=== PATIENT | female | born 1995 | race Two or more races ===

== ENCOUNTER 2019-07-09 16:04 | Emergency (ER) | payer SELFPAY ==
[2019-07-09 16:09] VITALS: BP 126/55
--- NOTE | 2019-07-09 16:22 | ER Document Report ---
ED Medical Screen (RME) - General Chief Complaint: Cold Symptoms Stated Complaint: SORE THROAT Time Seen by Provider: 07/09/19 16:12 Mode of Arrival: Ambulatory Information source: Patient Notes: 24-year-old female who is and half weeks presents emergency department with complaints of sore throat cough and fells like she is having a hard time getting a deep breath for the past few days.. Also c/o abdominal cramping. Vonda f/v/d. 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 Patient has hoarse voice. Respiratory rate even unlabored. Denies pain with void. Denies vaginal discharge denies head bleeding. I have greeted and performed a rapid initial assessment of this patient. A comprehensive ED assessment and evaluation of the patient, analysis of test results and completion of the medical decision making process will be conducted by additional ED providers. Dictation of this chart was performed using voice recognition software; therefore, there may be some unintended grammatical errors. TRAVEL OUTSIDE OF THE [place] IN LAST 30 DAYS: No - Related Data Allergies/Adverse Reactions: No Known Allergies Allergy (Verified 07/09/19 16:09) Physical Exam - Vital signs Vitals: Temp Pulse Resp BP Pulse Ox 97.5 F 59 L 20 126/55 H 99 07/09/19 16:08 07/09/19 16:08 07/09/19 16:08 07/09/19 16:08 07/09/19 16:08 Course - Vital Signs Vital signs: Temp Pulse Resp BP Pulse Ox 97.5 F 59 L 20 126/55 H 99 07/09/19 16:08 07/09/19 16:08 07/09/19 16:08 07/09/19 16:08 07/09/19 16:08
--- NOTE | 2019-07-09 16:47 | RADIOLOGY REPORT (SQ) ---
EXAM DESCRIPTION: CHEST 2 VIEWS COMPLETED DATE/TIME: 07/09/2019 4:37 pm REASON FOR STUDY: cough COMPARISON: None. EXAM PARAMETERS: NUMBER OF VIEWS: two views TECHNIQUE: Digital Frontal and Lateral radiographic views of the chest acquired. RADIATION DOSE: NA LIMITATIONS: none FINDINGS: LUNGS AND PLEURA: No opacities, masses or pneumothorax. No pleural effusion. MEDIASTINUM AND HILAR STRUCTURES: No masses or contour abnormalities. HEART AND VASCULAR STRUCTURES: Mild cardiomegaly. No pulmonary edema. BONES: No acute findings. HARDWARE: None in the chest. OTHER: No other significant finding. IMPRESSION: Mild cardiomegaly without pulmonary edema. TECHNICAL DOCUMENTATION: JOB ID: [id number] [employer]- All Rights Reserved Reading location - IP/workstation name: [email or web address]
[2019-07-09] MEDS ORDERED: ACETAMINOPHEN 325 MG TABLET PO ONE (16:49)
[2019-07-09 16:53] LABS: APPEARANCE,URINE CLEAR; BILIRUBIN,URINE NEGATIVE (NEGATIVE); COLOR,URINE COLORLESS; GLUCOSE, URINE NEGATIVE (NEGATIVE); KETONES,URINE NEGATIVE (NEGATIVE); LEUKOCYTE ESTERASE,URINE NEGATIVE (NEGATIVE); NITRITE,URINE NEGATIVE (NEGATIVE); PROTEIN,URINE NEGATIVE (NEGATIVE); URINE SPECIFIC GRAVITY 1.003; UROBILINOGEN,URINE NEGATIVE mg/dL (<2.0)
--- NOTE | 2019-07-09 16:53 | ER Document Report ---
HPI - HPI Patient complains to provider of: cough, sore throat Time Seen by Provider: 07/09/19 16:12 Onset: Last week Onset/Duration: Persistent Quality of pain: Achy Pain Level: 1 Context: Patient presents at 19 weeks G1, P0. Patient complains of sore throat cough for the past week. Patient states that she lost her voice yesterday. Patient denies any fever, nausea, vomiting, or diarrhea. Patient denies any vaginal bleeding or discharge. Patient does report some pelvic cramping that started yesterday. Patient denies any urinary symptoms. Patient does report positive movement. Associated Symptoms: Nonproductive cough, Sore throat, Other - Voice hoarseness, pelvic cramping. denies: Fever Exacerbated by: Denies Relieved by: Denies Similar symptoms previously: No Recently seen / treated by doctor: No - ROS ROS below otherwise negative: Yes Systems Reviewed and Negative: Yes All other systems reviewed and negative - CONSTITUTIONAL Constitutional: DENIES: Fever, Chills - EENT EENT: REPORTS: Sore Throat, Congestion - NEURO Neurology: DENIES: Headache - CARDIOVASCULAR Cardiovascular: DENIES: Chest pain - RESPIRATORY Respiratory: REPORTS: Coughing. DENIES: Trouble Breathing - GASTROINTESTINAL Gastrointestinal: REPORTS: Abdominal Pain. DENIES: Nausea, Patient vomiting - URINARY Urinary: DENIES: Dysuria, Urgency, Frequency - MUSCULOSKELETAL Musculoskeletal: DENIES: Back Pain - DERM Skin Color: Normal Skin Problems: None Past Medical History - General Information source: Patient - Social History Smoking Status: Never Smoker Frequency of alcohol use: None Drug Abuse: None Occupation: Personal care Family History: Reviewed & Not Pertinent Patient has suicidal ideation: No Patient has homicidal ideation: No Psychiatric Medical History: Reports: Hx Anxiety, Hx Depression Past Surgical History: Reports: Other - Tympanostomy Vertical Provider Document - CONSTITUTIONAL Agree With Documented VS: Yes Exam Limitations: No Limitations General Appearance: WD/WN, No Apparent Distress - INFECTION CONTROL TRAVEL OUTSIDE OF THE [place] IN LAST 30 DAYS: No - HEENT HEENT: Atraumatic, Normocephalic, Pharyngeal Tenderness. negative: Pharyngeal Exudate, Pharyngeal Erythema, Tympanic Membrane Red, Tympanic Membrane Bulging Notes: voice hoarseness - NECK Neck: Normal Inspection, Supple. negative: Lymphadenopathy-Left, Lymphadenopathy-Right - RESPIRATORY Respiratory: No Respiratory Distress, Chest Non-Tender, Other - dry cough - CARDIOVASCULAR Cardiovascular: Regular Rate, Regular Rhythm, No Murmur - GI/ABDOMEN Gastrointestinal: Abdomen Soft, Abdomen Tender - lower pelvic - BACK Back: Normal Inspection. negative: CVA Tenderness-Right, CVA Tenderness-Left - MUSCULOSKELETAL/EXTREMETIES Musculoskeletal/Extremeties: MAGNOLIA EDGE - NEURO Level of Consciousness: Awake, Alert, Appropriate Motor/Sensory: No Motor Deficit - DERM Integumentary: Warm, Dry, No Rash Course - Re-evaluation Re-evalutation: 07/09/19 17:33 Patient with heart tones of 148. Negative rapid strep test. No acute findings on chest x-ray aside from incidental cardiomegaly noted. Patient advised of x-ray findings. Patient denies any known history of cardiac enlargement. Patient is refusing to have ultrasound performed of the abdomen as she does not currently have insurance coverage. Patient states she had ultrasound several weeks ago which was normal. Patient denies any vaginal bleeding or discharge. Pt does have heart tones and notes movement. Patient requested provider speak with her mother as her mother is an CLINICAL PHARMACOLOGIST nurse. Discussed with patient and mother patient's diagnostic evaluation and testing that was ordered. Discussed incidental finding of cardiac enlargement. Patient typically gets a URI each year and feels that her symptoms are typical of URIs that she has had previously. Patient does not want to have any additio nal testing nor receive any additional medications at this time. - Vital Signs Vital signs: Temp Pulse Resp BP Pulse Ox 97.5 F 59 L 20 126/55 H 99 07/09/19 16:08 07/09/19 16:08 07/09/19 16:08 07/09/19 16:08 07/09/19 16:08 - Laboratory Laboratory results interpreted by me: 07/09/19 17:33 Labs- Entire Visit 07/09/19 07/09/19 16:18 16:53 Urine Color COLORLESS Urine Appearance CLEAR Urine pH 6.0 Ur Specific [place] 1.003 Urine Protein NEGATIVE Urine Glucose (UA) NEGATIVE Urine Ketones NEGATIVE Urine Blood NEGATIVE Urine Nitrite NEGATIVE Urine Bilirubin NEGATIVE Urine Urobilinogen NEGATIVE Ur Leukocyte Esterase NEGATIVE Urine WBC (Auto) 1 Urine Bacteria (Auto) TRACE Squamous Epi Cells Auto 1 Urine Mucus (Auto) RARE Urine Ascorbic Acid NEGATIVE Group A Strep Rapid NEGATIVE - Diagnostic Test Radiology reviewed: Image reviewed, Reports reviewed Discharge - Discharge Clinical Impression: Sore throat, Cardiac enlargement, Laryngitis Upper respiratory infection Qualifiers: URI type: unspecified URI Qualified Code(s): J06.9 - Acute upper respiratory infection, unspecified Condition: Stable Disposition: HOME, SELF-CARE Instructions: Acetaminophen, Laryngitis ([facility]), Sore Throat ([facility]), Upper Respiratory Illness ([facility]) Additional Instructions: Return immediately for any new or worsening symptoms Followup with your primary care provider, call tomorrow to make a followup appointment Throat culture is pending, we will call if you need any different treatment You may take Tylenol [id number] during Forms: Return to Work Referrals: HEALTH DEPT,[facility] [NO LOCAL MD] - Follow up as needed [facility] [Provider Group] - Follow up as needed
== END 2019-07-09 17:48 | disposition home or self-care (01) ==
LOC: ER 16:04
DX: O99.512 Diseases of the respiratory system complicating pregnancy, second trimester (principal); J06.9 Acute upper respiratory infection, unspecified; J02.9 Acute pharyngitis, unspecified; J04.0 Acute laryngitis; O99.412 Diseases of the circulatory system complicating pregnancy, second trimester; I51.7 Cardiomegaly; O26.892 Other specified pregnancy related conditions, second trimester; R05 Cough; R10.2 Pelvic and perineal pain; Z3A.19 19 weeks gestation of pregnancy
CPT/HCPCS: 71046; 81001; 87070; 87880; 99283